=== PATIENT | male | born 1965 | race Caucasian/White ===

== ENCOUNTER 2017-08-03 09:37 | Emergency (ER) | payer OTHER ==
[~2017-08-03] VITALS: Ht 182.9 cm; Wt 90.5 kg
[~2017-08-03 09:37] MED LIST: FISH1000 PO; GLUC500C3 PO; HYDR-3533 PO
[2017-08-03 09:50] VITALS: BP 159/102; PULSE 95; RESP 18; TEMP 98.1; O2SAT 98
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
[2017-08-03 10:10] LABS: AUTOMATED NEUTROPHIL # 3.9 TH/MM3 (1.8-7.7); BASOPHIL % 0.5 % (0.0-2.0); EOSINOPHIL # 0.3 TH/MM3 (0-0.4); EOSINOPHIL % 5.7 % (0.0-4.0); HEMATOCRIT 44.6 % (39.0-51.0); HEMO FLAGS DIFF FINAL; LYMPH % 22.5 % (9.0-44.0); LYMPHOCYTE # 1.3 TH/MM3 (1.0-4.8); MEAN CELL VOLUME 92.8 FL (80.0-100.0); MEAN CORPUSCULAR HEMOGLOBIN 30.9 PG (27.0-34.0); MEAN CORPUSCULAR HGB CONC 33.3 % (32.0-36.0); MONO % 7.2 % (0.0-8.0); NEUT % 64.1 % (16.0-70.0); PLATELET COUNT 246 TH/MM3 (150-450); RED CELL DISTRIBUTION WIDTH 12.8 % (11.6-17.2); WHITE BLOOD COUNT 5.9 TH/MM3 (4.0-11.0)
[2017-08-03 10:17] LABS: POTASSIUM 4.4 MEQ/L (3.5-5.1)
[2017-08-03 10:20] LABS: BICARBONATE 29.7 MEQ/L (21.0-32.0)
[2017-08-03 10:22] LABS: APTT (PATIENT) 23.3 SEC (24.3-30.1); PROTHROMBIN TIME - PATIENT 10.5 SEC (9.8-11.6)
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
[2017-08-03] MEDS ORDERED: TETANUS/DIPHTHERIA TOXOID ADULT 0.5 ML VIAL IM ONE (10:45)
[2017-08-03] MEDS ORDERED: IOHEXOL 350 MG/ML 10 ML VIAL (for RAD DIAG) IVCONTRAST ONE (11:10)
--- NOTE | 2017-08-03 11:13 | PD ---
Physical Exam Time Seen by Provider: 11:12 Data Data Last Documented VS Vital Signs Date Time Temp Pulse Resp B/P (MAP) Pulse Ox O2 Delivery O2 Flow Rate FiO2 08/03/17 09:54 (121) 08/03/17 09:50 98.1 95 18 98 Room Air Orders Orders Hand, Complete ([id number]) (08/03/17 ) Wrist, Complete ([id number]) (08/03/17 ) Chest, Single Ap (08/03/17 ) Pelvis, Ap Only (Routine) (08/03/17 ) Knee, Complete (4vws) (08/03/17 ) Knee, Complete (4vws) (08/03/17 ) Femur (Ap & Lat/2vws) (08/03/17 ) Ct Abd/Pel W Iv Contrast(Rout) (08/03/17 ) Ct Lumb Spine W/O Contrast (08/03/17 ) Iv Access Insert/Monitor (08/03/17 09:48) Complete Blood Count With Diff (08/03/17 09:48) Basic Metabolic Panel (Bmp) (08/03/17 09:48) Prothrombin Time / Inr (Pt) (08/03/17 09:48) Act Partial Throm Time (Ptt) (08/03/17 09:48) Spine, Cervical - Ltd (Ap&Lat) (08/03/17 ) Tetanus/Diphtheria Tox Adult (Tetanus/Di (08/03/17 10:45) Lidocai-Epi 1%-1:100,000 Inj (Xylocaine- (08/03/17 11:15) Iohexol 350 Inj (Omnipaque 350 Inj) (08/03/17 11:10) Lidocaine 1% Inj (50 Ml) (Xylocaine 1% I (08/03/17 11:30) Splint Or Brace Apply/Monitor (08/03/17 12:01) Labs Laboratory Tests Test 08/03/17 10:00 White Blood Count 5.9 TH/MM3 Red Blood Count 4.80 MIL/MM3 Hemoglobin 14.9 GM/DL Hematocrit 44.6 % Mean Corpuscular Volume 92.8 FL Mean Corpuscular Hemoglobin 30.9 PG Mean Corpuscular Hemoglobin Concent 33.3 % Red Cell Distribution Width 12.8 % Platelet Count 246 TH/MM3 Mean Platelet Volume 7.5 FL Neutrophils (%) (Auto) 64.1 % Lymphocytes (%) (Auto) 22.5 % Monocytes (%) (Auto) 7.2 % Eosinophils (%) (Auto) 5.7 % Basophils (%) (Auto) 0.5 % Neutrophils # (Auto) 3.9 TH/MM3 Lymphocytes # (Auto) 1.3 TH/MM3 Monocytes # (Auto) 0.4 TH/MM3 Eosinophils # (Auto) 0.3 TH/MM3 Basophils # (Auto) 0.0 TH/MM3 CBC Comment DIFF FINAL Differential Comment Prothrombin Time 10.5 SEC Prothromb Time International Ratio 1.0 RATIO Activated Partial Thromboplast Time 23.3 SEC Blood Urea Nitrogen 25 MG/DL Creatinine 0.78 MG/DL Random Glucose 111 MG/DL Calcium Level 9.9 MG/DL Sodium Level 140 MEQ/L Potassium Level 4.4 MEQ/L Chloride Level 104 MEQ/L Carbon Dioxide Level 29.7 MEQ/L Anion Gap 6 MEQ/L Estimat Glomerular Filtration Rate 104 ML/MIN MDM Medical Record Reviewed: Yes Supervised Visit with VALERIE: No Narrative Course This patient presents with a laceration to the anterior medial left knee, I was asked to repair the laceration. The patient verbally consents. Please see procedure note. Procedures Procedure Narrative LACERATION LOCATION: Anterior left knee LENGTH: 3 cm NUMBER OF STITCHES/SANDI: 10 REPAIR: The area of the laceration was prepped with Betadine and sterilely draped. The laceration was infiltrated with 1 percent lidocaine. The wound was copiously irrigated and explored without evidence of foreign body, tendon injury or neurovascular injury. The wound was closed using 4-0 prolene simple interrupted. This was a single layer repair. A sterile dressing was applied. The patient was advised to keep the dressing clean and dry. Patient tolerated the procedure well. Scripts No Active Prescriptions or Reported Meds Yasmany Hess Aug 03, 2017 11:13
[2017-08-03] MEDS ORDERED: LIDOCAINE 1%/EPINEPHrine 1:100,000 SOLN 20 ML VIAL INFIL ONE (11:15)
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
[2017-08-03] MEDS ORDERED: LIDOCAINE HCL 1% 50 ML VIAL INFIL ONE (11:30)
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
[2017-08-03 12:45] VITALS: BP 179/87; PULSE 82; RESP 16; O2SAT 99
[2017-08-03] MEDS ORDERED: PERC5TAB12 PO (13:11)
[2017-08-03 15:03] VITALS: BP 144/88; PULSE 73; RESP 16; O2SAT 96
[2017-08-03] MEDS ORDERED: KETOROLAC TROMETHAMINE 60 MG/2 ML (IM) VIAL IM ONE (15:15)
== END 2017-08-03 15:32 | disposition home or self-care (01) ==
LOC: PHED 09:37
DX: S32.009A Unspecified fracture of unspecified lumbar vertebra, initial encounter for closed fracture (principal); S62.92XA Unspecified fracture of left hand, initial encounter for closed fracture; S89.91XA Unspecified injury of right lower leg, initial encounter; S81.012A Laceration without foreign body, left knee, initial encounter; V19.9XXA Pedal cyclist (driver) (passenger) injured in unspecified traffic accident, initial encounter
CPT/HCPCS: 12002; 29125; 71010; 72040; 72131; 72170; 73110; 73130; 73552; 73564; 74177; 80048; 85025; 85610; 85730; 90471; 90714; 96372; 99285; J1885; L1830; Q9967

== ENCOUNTER → 2017-08-28 | Outpatient (CLI) | payer OTHER ==
[~2017-08-28] MED LIST changes: -FISH1000 PO; -GLUC500C3 PO; -HYDR-3533 PO; +PERC5TAB12 PO
== END ==
LOC: CLAB 14:30
PROVIDERS: ATTEND Orthopaedic Surgery Hand Surgery
DX: L08.9 Local infection of the skin and subcutaneous tissue, unspecified (principal); B96.20 Unspecified Escherichia coli [E. coli] as the cause of diseases classified elsewhere; B96.5 Pseudomonas (aeruginosa) (mallei) (pseudomallei) as the cause of diseases classified elsewhere
CPT/HCPCS: 86403; 87070; 87077; 87186; 87205